=== PATIENT | male | born 1975 | race Caucasian/White ===

== ENCOUNTER → 2022-07-07 | Outpatient (CLI) | payer OTHER ==
--- NOTE | 2022-07-07 15:20 | Diagnostic Imaging Report ---
INDICATION: Chest pain. EXAMINATION: PA and lateral views of the chest were obtained at 11:06 a.m. Heart and mediastinal silhouette are normal in appearance. The lungs are clear. There is no pneumothorax or pleural fluid. IMPRESSION: Negative chest. Dictated by: Dictated on workstation # [id number]
== END ==
LOC: RAD FS 10:51
PROVIDERS: ATTEND Registered Nurse Emergency
DX: Z00.00 Encounter for general adult medical examination without abnormal findings (principal); E03.8 Other specified hypothyroidism; E55.9 Vitamin D deficiency, unspecified; R07.89 Other chest pain
CPT/HCPCS: 71046

== ENCOUNTER → 2023-01-29 | Outpatient (CLI) | payer OTHER ==
--- NOTE | 2023-01-29 11:13 | Diagnostic Imaging Report ---
INDICATION: Intermittent chest pain, coronary artery screening. TECHNIQUE: The CT coronary calcium study was performed with noncontrast images of the heart followed by calculation of coronary calcium score. Dose reduction protocol was used. FINDINGS: The visualized portions of the mediastinum show no adenopathy. There is no pleural fluid or pericardial fluid. The visualized portions of the lung marsh show no acute finding. There are coronary artery calcifications in the LAD territory. The remaining vessels did not show significant calcifications. IMPRESSION: There are coronary calcifications in the LAD territory with a calcium score of 79.7, compatible with a mild to moderate overall plaque burden. Consider further workup as clinically warranted. Dictated by: Dictated on workstation # [id number]
== END ==
LOC: RAD 07:45
PROVIDERS: ATTEND Registered Nurse Emergency
DX: Z00.00 Encounter for general adult medical examination without abnormal findings (principal); Z12.11 Encounter for screening for malignant neoplasm of colon; Z13.6 Encounter for screening for cardiovascular disorders; E03.8 Other specified hypothyroidism; E55.9 Vitamin D deficiency, unspecified; R07.89 Other chest pain; E78.2 Mixed hyperlipidemia
CPT/HCPCS: 75571